=== PATIENT | female | born 1975 | race Caucasian/White ===

== ENCOUNTER 2018-04-28 09:51 | Emergency (ER) | payer BC ==
[~2018-04-28] VITALS: Ht 149.9 cm; Wt 89.2 kg
[2018-04-28 09:53] VITALS: BP 127/81
[2018-04-28] MEDS ORDERED: HYDROcodone/APAP 5/325 TABLET ONE (10:41)
[2018-04-28] MEDS ORDERED: HYDROcodone/APAP 5/325 TABLET PO PRN (11:00)
== END 2018-04-28 11:32 | disposition home or self-care (01) ==
LOC: ED 11:10
DX: M25.462 Effusion, left knee (principal)
CPT/HCPCS: 99284